=== PATIENT | female | born 1995 ===

== ENCOUNTER 2019-10-06 18:20 | Inpatient (IN) | payer OTHER ==
[2019-10-06] MEDS ORDERED: ELECTROLYTE-148 SOLN 1,000 ML IV SCH ×2 (19:00→21:00)
[2019-10-06 19:14] VITALS: BMI 25.0
[2019-10-06] MEDS ORDERED: AMPICILLIN SODIUM 2 GM VIAL ONE (19:19)
[2019-10-06] MEDS ORDERED: AMPICILLIN SODIUM 2 GM VIAL IVPB ONE (19:20)
[2019-10-06] MEDS ORDERED: OXYTOCIN 20 UNITS in 0.9% NS 20 UNIT/1,000 ML INFUS.BAG IV ONE ×2 (19:30→23:45)
[2019-10-06 19:47] LABS: BASO % 0.3 % (0-2.0); EOS % 0.1 % (0-4.5); HEMATOCRIT 32.2 % (32.4-45.2); HEMOGLOBIN 10.2 GM/dL (10.7-15.3); LYMPH % 8.5 % (8-40); MCH 26.7 pg (25.7-33.7); MCHC 31.8 g/dl (32.0-36.0); MEAN CELL VOLUME 84.1 fl (80-96); MEAN PLT VOLUME 8.7 fl (7.5-11.1); MONO % 4.6 % (3.8-10.2); NEUT % 86.5 % (42.8-82.8); PLATELET COUNT 248 K/MM3 (134-434); RBC 3.83 M/mm3 (3.60-5.2); RDW 22.4 % (11.6-15.6); WHITE BLOOD COUNT 15.8 K/mm3 (4.0-10.0)
[2019-10-06 19:58] LABS: INR 0.92 (0.83-1.09); PROTHROMBIN TIME (PATIENT) 10.9 SEC (9.7-13.0)
[2019-10-06 20:01] LABS: ACTIVATED PTT 27.8 SECONDS (25.2-36.5); BILIRUBIN,TOTAL 0.2 mg/dL (0.2-1); BLOOD UREA NITROGEN 9.4 mg/dL (7-18); CALCIUM 8.6 mg/dL (8.5-10.1); CREATININE 0.6 mg/dL (0.55-1.3); POTASSIUM 3.8 mmol/L (3.5-5.1); TOT PROT 6.6 g/dl (6.4-8.2)
[2019-10-06 20:19] LABS: COCAINE, UR NEGATIVE ng/ml (CUTOFF=300); METHADONE, UR NEGATIVE ng/ml (CUTOFF=300); OPIATES, URI NEGATIVE ng/ml (CUTOFF=300); PHENCYCLIDINE,URINE NEGATIVE ng/ml (CUTOFF=25); URINE AMPHETAMINES NEGATIVE ng/ml (CUTOFF=500); URINE BARBITURATES NEGATIVE ng/ml (CUTOFF=200); URINE BENZODIAZEPINES NEGATIVE ng/ml (CUTOFF=200)
[2019-10-06 20:32] LABS: ANISOCYTOSIS 3+; PLATELET ESTIMATE ADEQUATE
[2019-10-06 20:39] LABS: HYALINE CASTS 40 /lpf (0-8); PH,URINE 6.5 (5.0-8.0); URINE APPEARANCE CLOUDY; URINE BACTERIA 1885.8 /hpf (NEGATIVE); URINE BILIRUBIN NEGATIVE (NEGATIVE); URINE COLOR YELLOW; URINE GLUCOSE (UA) NEGATIVE (NEGATIVE); URINE KETONE NEGATIVE (NEGATIVE); URINE LEUK ESTERASE 2+ (NEGATIVE); URINE NITRITE POSITIVE (NEGATIVE); URINE PROTEIN NEGATIVE (NEGATIVE); URINE RBC 2 /hpf (0-4); URINE UROBILINOGEN 0.2 mg/dL (0.2-1.0); URINE WBC 66 /hpf (0-5)
[2019-10-06] MEDS ORDERED: DEXTROSE 5%-LACTATED RINGERS 1,000 ML IV SCH (20:45)
--- NOTE | 2019-10-06 20:49 | HP ---
Past Medical History - Admission Chief Complaint: Labor pain History of Present Illness: 24 yo , @ 39 weeks gestation, EDC 10/10/19, presents to L&D c/o pain during labor. Upon admission she was 5cm dilated. Patient has no care. History Source: Patient Limitations to Obtaining History: No Limitations - Past Medical History ...: 3 ...Para: 0 ...Term: 0 ...: 0 ...Spon : 1 ...Induced : 1 ...Multiple Gestation: 0 ...LMP: 01/03/19 ... Weeks Gestation by Dates: 39.3 ...EDC by Dates: 10/10/19 - Past Surgical History Past Surgical History: Yes: None Hx Myomectomy: No Hx Transabdominal Cerclage: No - Smoking History Smoking history: Never smoked Have you smoked in the past 12 months: No - Alcohol/Substance Use Hx Alcohol Use: No - Social History History of Recent Travel: No Home Medications - Allergies Allergies/Adverse Reactions: Allergies Allergy/AdvReac Type Severity Reaction Status Date / Time No Known Allergies Allergy Verified 10/06/19 19:01 - Home Medications Home Medications: Ambulatory Orders Pnv No.95/Ferrous Fum/Folic AC [ Vitamin Tablet] 1 each PO DAILY Family Medical History Family History: Unremarkable Review of Systems - Review of Systems Constitutional: reports: No Symptoms Eyes: reports: No Symptoms HENT: reports: No Symptoms Neck: reports: No Symptoms Cardiovascular: reports: No Symptoms Respiratory: reports: No Symptoms Gastrointestinal: reports: No Symptoms Genitourinary: reports: Pain Breasts: reports: No Symptoms Reported Musculoskeletal: reports: No Symptoms Integumentary: reports: No Symptoms Neurological: reports: No Symptoms Endocrine: reports: No Symptoms Hematology/Lymphatic: reports: No Symptoms Psychiatric: reports: No Symptoms Pain Intensity: 9 Physical Exam - Maternity Vital Signs: Vital Signs Temperature 97.6 F 10/06/19 18:58 Pulse Rate 86 10/06/19 18:58 Respiratory Rate 20 10/06/19 18:58 Blood Pressure 127/72 10/06/19 18:58 O2 Sat by Pulse Oximetry (%) Constitutional: Yes: Well Nourished Eyes: Yes: Conjunctiva Clear HENT: Yes: Atraumatic Neck: Yes: Supple Cardiovascular: Yes: Regular Rate and Rhythm Lungs: Clear to auscultation - Abdominal Exam/OB Number of Fetuses: Single Presentation: Vertex Intensity: Mod/Strong - Vaginal Exam/OB Vaginal Bleediing: No Dilatation (cm): 5 Effacement (%): 90 Amniotic Membrane Status: Intact Presentation: Vertex/Position Station: -2 - Physical Exam ...Motor Strength: WNL Psychiatric: Yes: Alert, Oriented - Labs Lab Results: CBC, BMP 10/06/19 19:15 10/06/19 19:15 Problem List - Problems (1) 39 weeks gestation of Problems reviewed: Yes Code(s): Z3A.39 - 39 WEEKS GESTATION OF (2) Pain during labor Problems reviewed: Yes Code(s): O99.89 - OTH DISEASES AND CONDITIONS COMPL PREG/CHLDBRTH; R52 - PAIN, UNSPECIFIED Assessment/Plan 39 weeks gestation Active labor Admit to L&D
--- NOTE | 2019-10-06 20:58 | PN ---
Progress Note (short form) - Note Progress Note: Patient seen and evaluated. She c/o moderate discomfort. FHR: Non-Reassuring, Lack of accelerations [place] : + regular contractions VE : 8/100/-2 AROM : clear Internal monitor placed but hear rate continue to be non reassuring. A/P : 39 weeks gestation NRFHR Prep and shave Perez catheter Anesthesia to see patient Problem List - Problems (1) 39 weeks gestation of Code(s): Z3A.39 - 39 WEEKS GESTATION OF (2) Pain during labor Code(s): O99.89 - OTH DISEASES AND CONDITIONS COMPL PREG/CHLDBRTH; R52 - PAIN, UNSPECIFIED
[2019-10-06] MEDS ORDERED: CITRIC ACID/SODIUM CITRATE 30 ML UNIT-DOSE CUP PO ONE ×2 (20:59)
[2019-10-06] MEDS ORDERED: morphine SULFATE/PF 0.5 MG/ML (2cc Syringe - QUVA) EP ONE (21:40)
[2019-10-06] MEDS ORDERED: ONDANSETRON 4 MG/2 ML VIAL IVPUSH PRN (21:40)
[2019-10-06] MEDS ORDERED: morphine SULFATE/PF 0.5 MG/ML (2cc Syringe - QUVA) ONE (21:43)
[2019-10-06] MEDS ORDERED: METHYLERGONOVINE MALEATE 0.2 MG/1 ML AMP IM PRN (21:43)
[2019-10-06] MEDS ORDERED: OXYTOCIN 20 UNITS in 0.9% NS 20 UNIT/1,000 ML INFUS.BAG IV SCH (21:45)
--- NOTE | 2019-10-06 21:48 | OP ---
Operative Note - Note: Operative Date: 10/06/19 Pre-Operative Diagnosis: Non-Reassuring Heart Rate Operation: Primary Low Transverse Findings: Baby in OA position Surgeon: Bella Rossi Order Entry Clerk: Kliey Jeffrey Anesthesiologist/[employer] SUPERVISOR: Grayson Fitzgerald Anesthesia: Spinal Specimens Removed: Placenta Estimated Blood Loss (mls): 600
[2019-10-06] MEDS: FERROUS SO4 325 MG TABLET (FP) PO SCH (22:00)
[2019-10-06] MEDS ORDERED: AMPICILLIN SODIUM 1 GM VIAL IVPB SCH (23:30)
--- NOTE | 2019-10-07 05:32 | PN ---
Post Progress Note - Subjective Subjective: 24 yo Para 1, status post primary , seen and evaluated. Doing well Post Day: 1 Type of Delivery: Primary C/S Vital Signs: Vital Signs Temperature 98.1 F 10/07/19 01:50 Pulse Rate 82 10/07/19 01:50 Respiratory Rate 18 10/07/19 05:00 Blood Pressure 123/75 10/07/19 01:50 O2 Sat by Pulse Oximetry (%) Breast Exam: Yes: Soft Uterus: Yes: Fundus @ umbilicus Incision: Yes: Dressing dry and intact Abdomen/GI: Yes: Abdomen soft Lochia: Yes: Rubra Lochia, amount: Small Extremities: Yes: Calves non-tender Activity: Other (She's lying in bed) - Labs Labs: CBC WBC 15.8 K/mm3 (4.0-10.0) H 10/06/19 19:15 RBC 3.83 M/mm3 (3.60-5.2) 10/06/19 19:15 Hgb 10.2 GM/dL (10.7-15.3) L 10/06/19 19:15 Hct 32.2 % (32.4-45.2) L 10/06/19 19:15 MCV 84.1 fl (80-96) 10/06/19 19:15 MCH 26.7 pg (25.7-33.7) 10/06/19 19:15 MCHC 31.8 g/dl (32.0-36.0) L 10/06/19 19:15 RDW 22.4 % (11.6-15.6) H 10/06/19 19:15 Plt Count 248 K/MM3 (134-434) 10/06/19 19:15 MPV 8.7 fl (7.5-11.1) 10/06/19 19:15 Absolute Neuts (auto) 13.6 K/mm3 (1.5-8.0) H 10/06/19 19:15 Neutrophils % 86.5 % (42.8-82.8) H 10/06/19 19:15 Lymphocytes % 8.5 % (8-40) 10/06/19 19:15 Monocytes % 4.6 % (3.8-10.2) 10/06/19 19:15 Eosinophils % 0.1 % (0-4.5) 10/06/19 19:15 Basophils % 0.3 % (0-2.0) 10/06/19 19:15 Nucleated RBC % 0 % (0-0) 10/06/19 19:15 Hypochromia 1+ 10/06/19 19:15 Platelet Estimate Adequate 10/06/19 19:15 Platelet Comment No clumping noted 10/06/19 19:15 Polychromasia 1+ 10/06/19 19:15 Anisocytosis 3+ 10/06/19 19:15 Microcytosis 1+ 10/06/19 19:15 Problem List - Problems (1) 39 weeks gestation of Problems reviewed: Yes Code(s): Z3A.39 - 39 WEEKS GESTATION OF (2) Pain during labor Problems reviewed: Yes Code(s): O99.89 - OTH DISEASES AND CONDITIONS COMPL PREG/CHLDBRTH; R52 - PAIN, UNSPECIFIED (3) Status post primary low transverse section Problems reviewed: Yes Code(s): Z98.891 - HISTORY OF UTERINE SCAR FROM PREVIOUS SURGERY Assessment/Plan Status post primary Ambulation Analgesia as needed Continue routine post op care
[2019-10-07 08:09] LABS: BASO % 0.1 % (0-2.0); HEMATOCRIT 26.3 % (32.4-45.2); HEMOGLOBIN 8.8 GM/dL (10.7-15.3); LYMPH % 4.4 % (8-40); MCH 27.8 pg (25.7-33.7); MCHC 33.5 g/dl (32.0-36.0); MEAN CELL VOLUME 82.9 fl (80-96); MEAN PLT VOLUME 8.2 fl (7.5-11.1); MONO % 6.7 % (3.8-10.2); NEUT % 88.8 % (42.8-82.8); PLATELET COUNT 201 K/MM3 (134-434); RBC 3.17 M/mm3 (3.60-5.2); RDW 22.1 % (11.6-15.6)
[2019-10-07 09:54] LABS: ANISOCYTOSIS 2+; PLATELET ESTIMATE NORMAL
[2019-10-07] MEDS: FERROUS SO4 325 MG TABLET (FP) PO SCH ×2 (10:35→22:14)
[2019-10-07] MEDS: PRENATAL VITAMINS W/ FOLIC ACID TABLET (FP) PO SCH (10:36)
[2019-10-07 12:00] LABS: RPR NONREACTIVE (NONREACTIVE)
[2019-10-07] MEDS: IBUPROFEN 600 MG TABLET (FP) PO PRN ×2 (13:24→17:39)
[2019-10-07] MEDS ORDERED: BISACODYL 10 MG SUPP.RECT RC PRN (21:43)
[2019-10-08] MEDS: IBUPROFEN 600 MG TABLET (FP) PO PRN ×3 (04:43→19:51)
[2019-10-08] MEDS: SIMETHICONE 80 MG TAB.CHEW (FP) PO PRN ×3 (04:43→19:51)
--- NOTE | 2019-10-08 05:29 | PN ---
Progress Note, Physician Chief Complaint: s/p c section post op day one History of Present Illness: duramorph for post op pain, spinal anesthesia - Current Medication List Current Medications: Active Medications Bisacodyl (Dulcolax Suppository -) 10 mg RC PRN PRN PRN Reason: CONSTIPATION Diphtheria/Tetanus/Acell Pertussis (Boostrix -) 0.5 ml IM .ONCE ONE Stop: 10/08/19 10:01 Ferrous Sulfate (Feosol -) 325 mg PO BID [facility] Last Admin: 10/07/19 22:14 Dose: 325 mg Ibuprofen (Motrin -) 600 mg PO Q4H PRN PRN Reason: PAIN LEVEL 1 - 3 Last Admin: 10/08/19 04:43 Dose: 600 mg Methylergonovine Maleate (Methergine Injection -) 0.2 mg IM Q4H PRN PRN Reason: Excessive Bleeding (L&D) Oxycodone HCl (Roxicodone -) 5 mg PO Q4H PRN PRN Reason: PAIN LEVEL 4 - 6 Multivit/Folic Acid/Iron ( Vitamins (Sjr) -) 1 tab PO DAILY [facility] Last Admin: 10/07/19 10:36 Dose: Not Given Simethicone (Mylicon -) 80 mg PO Q4H PRN PRN Reason: GAS Last Admin: 10/08/19 04:43 Dose: 80 mg - Objective Vital Signs: Vital Signs Temperature 98.1 F 10/07/19 22:00 Pulse Rate 72 10/07/19 22:00 Respiratory Rate 18 10/07/19 22:00 Blood Pressure 98/58 L 10/07/19 22:00 O2 Sat by Pulse Oximetry (%) Constitutional: Yes: Well Nourished Cardiovascular: Yes: WNL Respiratory: Yes: WNL Gastrointestinal: Yes: WNL Labs: CBC, BMP 10/07/19 07:52 10/06/19 19:15 INR, PTT INR 0.92 (0.83-1.09) 10/06/19 19:15 Assessment/Plan No adverse effects from anesthetic, dept of anesthesia will sign off case at this time
[2019-10-08] MEDS: oxyCODONE HCL 5 MG TABLET PO PRN ×2 (08:22→19:51)
[2019-10-08] MEDS: FERROUS SO4 325 MG TABLET (FP) PO SCH ×2 (09:55→21:34)
[2019-10-08] MEDS: PRENATAL VITAMINS W/ FOLIC ACID TABLET (FP) PO SCH (09:55)
[2019-10-08] MEDS ORDERED: DIPHTH,PERTUSS(ACELL),TET 0.5 ML DISP.SYRIN IM ONE (10:00)
--- NOTE | 2019-10-08 20:10 | PN ---
Post Progress Note - Subjective Subjective: Patient is doing well, ambulating, tolerating PO, lochia decreased, external patient with no available documentation. Post Day: 2 Type of Delivery: Primary C/S Vital Signs: Vital Signs Temperature 98.3 F 10/08/19 20:02 Pulse Rate 82 10/08/19 20:02 Respiratory Rate 18 10/08/19 20:02 Blood Pressure 114/60 10/08/19 20:02 O2 Sat by Pulse Oximetry (%) Breast Exam: Yes: Other (deferred) Uterus: Yes: Fundus Firm Incision: Yes: [place] intact Abdomen/GI: Yes: Abdomen soft Lochia, amount: Small Extremities: Yes: Calves non-tender - Labs Labs: CBC WBC 20.0 K/mm3 (4.0-10.0) H 10/07/19 07:52 RBC 3.17 M/mm3 (3.60-5.2) L 10/07/19 07:52 Hgb 8.8 GM/dL (10.7-15.3) L 10/07/19 07:52 Hct 26.3 % (32.4-45.2) L D 10/07/19 07:52 MCV 82.9 fl (80-96) 10/07/19 07:52 MCH 27.8 pg (25.7-33.7) 10/07/19 07:52 MCHC 33.5 g/dl (32.0-36.0) 10/07/19 07:52 RDW 22.1 % (11.6-15.6) H 10/07/19 07:52 Plt Count 201 K/MM3 (134-434) 10/07/19 07:52 MPV 8.2 fl (7.5-11.1) 10/07/19 07:52 Absolute Neuts (auto) 17.8 K/mm3 (1.5-8.0) H 10/07/19 07:52 Neutrophils % 88.8 % (42.8-82.8) H 10/07/19 07:52 Neutrophils % (Manual) 89.0 % (42.8-82.8) H 10/07/19 07:52 Band Neutrophils % 0.0 % 10/07/19 07:52 Lymphocytes % 4.4 % (8-40) L D 10/07/19 07:52 Lymphocytes % (Manual) 3.0 % (8-40) L 10/07/19 07:52 Monocytes % 6.7 % (3.8-10.2) 10/07/19 07:52 Monocytes % (Manual) 6 % (3.8-10.2) 10/07/19 07:52 Eosinophils % 0.0 % (0-4.5) D 10/07/19 07:52 Eosinophils % (Manual) 0.0 % (0-4.5) 10/07/19 07:52 Basophils % 0.1 % (0-2.0) 10/07/19 07:52 Basophils % (Manual) 0.0 % (0-2.0) 10/07/19 07:52 Myelocytes % (Man) 0 % (0-2) 10/07/19 07:52 Promyelocytes % (Man) 0 % (0-2) 10/07/19 07:52 Blast Cells % (Manual) 0 % (0-0) 10/07/19 07:52 Nucleated RBC % 0 % (0-0) 10/07/19 07:52 Metamyelocytes 1 % (0-2) 10/07/19 07:52 Hypochromia 1+ 10/06/19 19:15 Platelet Estimate Normal 10/07/19 07:52 Platelet Comment No clumping noted 10/06/19 19:15 Polychromasia 1+ 10/06/19 19:15 Anisocytosis 2+ 10/07/19 07:52 Microcytosis 1+ 10/06/19 19:15 Assessment/Plan POD # 2, in stable condition -Continue PP/post-op care -Anticipate D/C home tomorrow -Patient desires to go to [facility] for
[2019-10-09] MEDS: SIMETHICONE 80 MG TAB.CHEW (FP) PO PRN (05:34)
[2019-10-09] MEDS: IBUPROFEN 600 MG TABLET (FP) PO PRN (05:34)
[2019-10-09] MEDS: FERROUS SO4 325 MG TABLET (FP) PO SCH (09:16)
[2019-10-09] MEDS: PRENATAL VITAMINS W/ FOLIC ACID TABLET (FP) PO SCH (09:16)
[2019-10-09 09:27] LABS: BASO % 0.2 % (0-2.0); EOS % 1.3 % (0-4.5); HEMATOCRIT 26.5 % (32.4-45.2); HEMOGLOBIN 8.6 GM/dL (10.7-15.3); LYMPH % 13.5 % (8-40); MCHC 32.3 g/dl (32.0-36.0); MEAN CELL VOLUME 83.4 fl (80-96); MEAN PLT VOLUME 8.2 fl (7.5-11.1); MONO % 5.3 % (3.8-10.2); NEUT % 79.7 % (42.8-82.8); PLATELET COUNT 202 K/MM3 (134-434); RBC 3.17 M/mm3 (3.60-5.2); RDW 22.2 % (11.6-15.6); WHITE BLOOD COUNT 11.7 K/mm3 (4.0-10.0)
--- NOTE | 2019-10-09 09:56 | DS ---
Physical Examination Vital Signs: Vital Signs Temperature 98.3 F 10/08/19 20:02 Pulse Rate 82 10/08/19 20:02 Respiratory Rate 18 10/08/19 20:02 Blood Pressure 114/60 10/08/19 20:02 O2 Sat by Pulse Oximetry (%) Findings/Remarks: Ambulating, passing flatus, tolerating PO, lochia decreased, PP/postop precautions discussed. PAtient instructed to follow up at [facility] in within a week for staple removal Constitutional: Yes: Calm Eyes: Yes: WNL HENT: Yes: Atraumatic Neck: Yes: Supple Cardiovascular: Yes: Regular Rate and Rhythm Respiratory: Yes: Regular Gastrointestinal: Yes: Soft ...Rectal Exam: Yes: Deferred Renal/: Yes: Other (deferred) Breast(s): Yes: Other (deferred) Musculoskeletal: Yes: WNL Extremities: Yes: WNL Edema: No Integumentary: Yes: WNL Wound/Incision: Yes: Clean/Dry, Well Approximated, [place] Intact Neurological: Yes: Alert, Oriented ...Motor Strength: WNL Psychiatric: Yes: Alert, Oriented Labs: CBC, BMP 10/09/19 09:00 10/06/19 19:15 Discharge Summary Problems reviewed: Yes Reason For Visit: LABOR PRIMARY C/SEC Current Active Problems 39 weeks gestation of (Acute) Pain during labor (Acute) Status post primary low transverse section (Acute) Procedures: Principal: PLTCS Hospital Course: Patient presenting with limited care documentation from an external OBGYN. She underwent PLTCS due to distress. Uncomplicated and post-op recovery Plan of Treatment: Please return to regular diet as tolerated. Follow up at [facility] for staple removal and incision check within a week of discharge. Follow up pp/post- op precautions as explained at bedside Condition: Stable - Instructions Diet, Activity, Other Instructions: Return to regular diet as tolerated. Follow up post-op/PP precautions as discussed with attending. Follow up at [facility] within 1 week Referrals: Gus Estrada MD [Staff Physician] - Disposition: HOME - Home Medications Comprehensive Discharge Medication List: Ambulatory Orders Pnv No.95/Ferrous Fum/Folic AC [ Vitamin Tablet] 1 each PO DAILY Acetaminophen [Tylenol] 650 mg PO Q6H PRN #20 capsule MDD 5 10/08/19 Ibuprofen 600 mg PO Q6H PRN #30 tablet 10/08/19 Oxycodone HCl 5 mg PO Q6H PRN #10 tablet MDD 5 10/08/19
[2019-10-09 14:53] VITALS: BP 113/68; PULSE 63; TEMP 98.5
== END 2019-10-09 11:15 | disposition home or self-care (01) | DRG 540 ==
LOC: JDEL 18:20 → JLDR 18:45 → J3W 10-07 00:09
PROVIDERS: ADMIT Obstetrics & Gynecology; ATTEND Obstetrics & Gynecology
PROC: 10D00Z1 Extraction of Products of Conception, Low, Open Approach (ICD-10-PCS; principal; 2019-10-06)
DX: O76 Abnormality in fetal heart rate and rhythm complicating labor and delivery (principal); Z3A.39 39 weeks gestation of pregnancy; Z37.0 Single live birth
CPT/HCPCS: 36415; 36600; 80053; 80307; 81003; 82803; 85025; 85610; 85730; 86593; 86762; 86850; 86900; 86901; 87340; 87389; 90715